=== PATIENT | male | born 1995 | race Caucasian/White ===

== ENCOUNTER 2018-06-05 18:05 | Emergency (ER) | payer BC ==
[2018-06-05] MEDS: SOD CHLORIDE 0.9% 1,000 ML IV (20:07)
[2018-06-05] MEDS: ONDANSETRON 4 MG INJ IV (20:07)
[2018-06-05 20:19] LABS: ADD MAN DIFF? NO
[2018-06-05 20:21] LABS: BASOPHIL # 0.1 10^3/ul (0.0-0.1); BASOPHILS % 0.7 % (0.0-2.0); EOSINOPHILS # 0.2 10^3/ul (0.0-0.5); EOSINOPHILS % 2.4 % (0.0-7.0); HEMATOCRIT 43.3 % (42.0-52.0); HEMOGLOBIN 15.4 g/dl (14.0-18.0); LYMPHOCYTES # 3.8 10^3/ul (0.8-2.9); LYMPHOCYTES % 45.7 % (15.0-51.0); MEAN CORPUSCULAR HGB CONC 35.6 g/dl (32.0-37.0); MEAN CORPUSCULAR VOLUME 87.1 fl (82.0-101.0); MEAN PLATELET VOLUME 9.4 fl (7.4-10.4); MONOCYTE # 0.7 10^3/ul (0.3-0.9); MONOCYTES % 7.8 % (0.0-11.0); NEUTROPHIL # 3.6 10^3/ul (1.6-7.5); NEUTROPHILS % 43.2 % (39.0-77.0); PLATELET COUNT 262 10^3/UL (140-415); RED BLOOD COUNT 4.97 10^6/ul (4.70-6.10); RED CELL DISTRIBUTION WIDTH 11.4 % (11.5-14.5)
[2018-06-05 20:21] LABS: WHITE BLOOD COUNT 8.4 10^3/ul (4.8-10.8)
[2018-06-05 20:24] LABS: ADD UMIC NO; UR ASCORBIC ACID NEGATIVE (NEGATIVE); UR BILIRUBIN (Dip) NEGATIVE (NEGATIVE); UR BLOOD (Dip) NEGATIVE (NEGATIVE); UR CLARITY CLEAR (CLEAR); UR COLOR YELLOW (YELLOW); UR GLUCOSE (Dip) 2+ mg/dL (NEGATIVE); UR KETONES (Dip) TRACE mg/dL (NEGATIVE); UR LEUKOCYTE ESTERASE (Dip) NEGATIVE Leu/ul (NEGATIVE); UR NITRITE (Dip) NEGATIVE (NEGATIVE); UR TOTAL PROTEIN (Dip) NEGATIVE (NEGATIVE); UR UROBILINOGEN (Dip) NEGATIVE (NEGATIVE)
[2018-06-05 20:38] LABS: ALANINE AMINOTRANSFERASE 45 IU/L (13-69); ALBUMIN 4.3 g/dl (3.3-4.9); ALBUMIN/GLOBULIN RATIO 1.19; ALKALINE PHOSPHATASE 85 IU/L (42-121); ANION GAP 15 (8-16); ASPARTATE AMINO TRANSFERASE 22 IU/L (15-46); BILIRUBIN,INDIRECT 0.4 mg/dl (0-1.1); BILIRUBIN,TOTAL 0.4 mg/dl (0.2-1.3); BLOOD UREA NITROGEN 12 mg/dl (7-20); CALCIUM 9.6 mg/dl (8.4-10.2); CARBON DIOXIDE 25 mmol/L (21-31); CHLORIDE 104 mmol/L (97-110); CREATININE 0.49 mg/dl (0.61-1.24); GLUCOSE 175 mg/dl (70-220); LIPASE 71 U/L (23-300); POTASSIUM 3.9 mmol/L (3.5-5.1); SODIUM 140 mmol/L (135-144); TOTAL PROTEIN 7.9 g/dl (6.1-8.1)
== END 2018-06-05 22:50 | disposition home or self-care (01) ==
LOC: FTE 18:05
DX: R11.0 Nausea (principal); R19.7 Diarrhea, unspecified; E11.9 Type 2 diabetes mellitus without complications; Z85.47 Personal history of malignant neoplasm of testis
CPT/HCPCS: 36415; 80053; 81003; 82962; 83690; 85025; 96374; 99284-25

== ENCOUNTER 2018-06-09 11:18 | Day surgery (SDC) | payer BC ==
[~2018-06-09 11:18] MED LIST: CEFAZOLIN 1 GM INJ; CEFAZOLIN 2 GM/50 ML (PMX) 50 ML IVPB; SUCCINYLCHOLINE CHLORIDE 100 MG/5 ML SYG IV
[2018-06-09] MEDS ORDERED: NEOSTIGMINE 3 MG/3 ML SYRINGE (13:01)
[2018-06-09] MEDS ORDERED: MIDAZOLAM 1 MG/ML 2 ML INJ ×2 (13:01→15:07)
[2018-06-09] MEDS ORDERED: CEFAZOLIN 1 GM INJ (13:01)
[2018-06-09] MEDS ORDERED: ROCURONIUM 50 MG INJ (13:01)
[2018-06-09] MEDS ORDERED: GLYCOPYRROLATE 0.4 MG INJ (13:01)
[2018-06-09] MEDS ORDERED: PROPOFOL 20 ML (13:01)
[2018-06-09] MEDS ORDERED: FENTAnyl 50 MCG/ML VIAL ×4 (13:02→15:07)
[2018-06-09] MEDS ORDERED: ONDANSETRON 4 MG INJ (13:02)
[2018-06-09] MEDS ORDERED: DEXAMETHASONE 4 MG/ML 1 ML INJ (13:02)
[2018-06-09] MEDS ORDERED: ROPIVACAINE 0.5 % 30 ML VIAL (13:32)
[2018-06-09] MEDS ORDERED: SUGAMMADEX SODIUM 200 MG/2 ML VIAL IV (14:29)
[2018-06-09] MEDS: BUPIVACAINE 0.25% (MPF) 30 ML INJ (14:29)
[2018-06-09] MEDS ORDERED: KETOROLAC 30 MG INJ (14:30)
[2018-06-09] MEDS ORDERED: HYDROmorphONE 1 MG/5 ML IV SYRINGE IV ×2 (15:07→15:30)
[2018-06-09] MEDS: FENTAnyl 50 MCG/ML VIAL IV ×2 (15:16→15:25)
[2018-06-09] MEDS: HYDROmorphONE 1 MG/5 ML IV SYRINGE IV ×3 (15:16→16:19)
[2018-06-09] MEDS: MIDAZOLAM 1 MG/ML 2 ML INJ IV (15:17)
[2018-06-09] MEDS ORDERED: EPHEDrine SULFATE 50 MG/5 ML SYG IV (15:30)
[2018-06-09] MEDS ORDERED: OXYCODONE/ACETAMINOPHEN (5/325) TAB PO ×2 (15:30)
[2018-06-09] MEDS ORDERED: TRIMETHOBENZAMIDE 100 MG/ML VIAL IM (15:30)
[2018-06-09] MEDS ORDERED: IPRATROPIUM (NEB) 0.5 MG/2.5 ML AMP HHN (15:30)
[2018-06-09] MEDS ORDERED: ALBUTEROL 0.083% (NEB) 2.5 MG/3 ML AMP HHN (15:30)
[2018-06-09] MEDS ORDERED: MEPERIDINE 25 MG INJ IV (15:30)
[2018-06-09] MEDS ORDERED: FENTAnyl 50 MCG/ML VIAL IV ×2 (15:30)
[2018-06-09] MEDS ORDERED: DIPHENHYDRAMINE 50 MG INJ IV (15:30)
[2018-06-09] MEDS ORDERED: hydrALAzine 20 MG INJ IV (15:30)
[2018-06-09] MEDS ORDERED: LABETALOL HCL 20MG INJ IV (15:30)
[2018-06-09] MEDS: ONDANSETRON 4 MG INJ IV (16:45)
== END 2018-06-09 17:40 | disposition home or self-care (01) ==
LOC: SDS 11:18
DX: C62.92 Malignant neoplasm of left testis, unspecified whether descended or undescended (principal); E66.01 Morbid (severe) obesity due to excess calories; I10 Essential (primary) hypertension; E11.9 Type 2 diabetes mellitus without complications
CPT/HCPCS: 54520; 82962; 88307

== ENCOUNTER 2019-07-17 19:47 | Emergency (ER) | payer BC ==
[2019-07-17] MEDS ORDERED: KETOROLAC 60 MG INJ IM (20:33)
[2019-07-17 20:56] LABS: URINE PH (Dip) POC 5.5 (5.0-8.5)
[2019-07-17 20:56] LABS: URINE BLOOD (Dip) POC Negative (NEGATIVE); URINE KETONES (Dip) POC Negative (NEGATIVE); URINE LEUKOCYTE EST (Dip) POC Negative (NEGATIVE); URINE NITRITE (Dip) POC Negative (NEGATIVE); URINE TOTAL PROTEIN POC Negative (NEGATIVE)
[2019-07-17 21:48] LABS: ADD MAN DIFF? NO
[2019-07-17 21:52] LABS: WHITE BLOOD COUNT 8.5 10^3/ul (4.8-10.8)
[2019-07-17 21:52] LABS: BASOPHIL # 0.1 10^3/ul (0.0-0.1); BASOPHILS % 0.8 % (0.0-2.0); EOSINOPHILS # 0.3 10^3/ul (0.0-0.5); EOSINOPHILS % 3.2 % (0.0-7.0); HEMATOCRIT 45.2 % (42.0-52.0); HEMOGLOBIN 15.6 g/dl (14.0-18.0); LYMPHOCYTES # 3.9 10^3/ul (0.8-2.9); LYMPHOCYTES % 45.6 % (15.0-51.0); MEAN CORPUSCULAR HEMOGLOBIN 30.9 pg (29.0-33.0); MEAN CORPUSCULAR HGB CONC 34.5 g/dl (32.0-37.0); MEAN CORPUSCULAR VOLUME 89.5 fl (82.0-101.0); MEAN PLATELET VOLUME 9.6 fl (7.4-10.4); MONOCYTE # 0.6 10^3/ul (0.3-0.9); MONOCYTES % 6.9 % (0.0-11.0); NEUTROPHIL # 3.7 10^3/ul (1.6-7.5); NEUTROPHILS % 43.3 % (39.0-77.0); PLATELET COUNT 321 10^3/UL (140-415); RED BLOOD COUNT 5.05 10^6/ul (4.70-6.10); RED CELL DISTRIBUTION WIDTH 11.5 % (11.5-14.5)
[2019-07-17 22:09] LABS: ANION GAP 10 (5-13); BLOOD UREA NITROGEN 14 mg/dl (7-20); CALCIUM 9.6 mg/dl (8.4-10.2); CARBON DIOXIDE 26 mmol/L (21-31); CHLORIDE 104 mmol/L (97-110); CREATININE 0.54 mg/dl (0.61-1.24); Estimated GFR > 60 mL/min (>60); GLUCOSE 236 mg/dl (70-220); POTASSIUM 3.9 mmol/L (3.5-5.1); SODIUM 140 mmol/L (135-144)
[2019-07-17] MEDS: MECLIZINE 12.5 MG TAB PO (22:14)
== END 2019-07-17 23:02 | disposition home or self-care (01) ==
LOC: FTE 19:47
DX: R42 Dizziness and giddiness (principal); E11.9 Type 2 diabetes mellitus without complications; I10 Essential (primary) hypertension; Z79.84 Long term (current) use of oral hypoglycemic drugs
CPT/HCPCS: 36415; 71045; 80048; 81003; 85025; 93005; 99285-25